=== PATIENT | male | born 1980 | race African-American/Black ===

== ENCOUNTER → 2018-10-22 | Outpatient (CLI) | payer OTHER ==
--- NOTE | 2018-10-23 01:43 | REP ---
Clinical: Lower back pain. Technique: AP, lateral, bilateral oblique and coned-down views of the lumbosacral spine. Findings: Alignment and lordosis maintained. No acute fracture / compression injury or subluxation. Very minimal disc space narrowing at L5-S1 cannot be excluded. No further significant arthritic/degenerative changes appreciated. Impression: Minimal disc space narrowing and L5-S1. Electronically Signed by Rocky Segura MD 10/23/2018 01:35 A
--- NOTE | 2018-10-23 02:03 | REP ---
Clinical: Right hip pain. Technique: Neutral and frog lateral views of the right hip. Findings: Mild joint space narrowing is appreciated. No further overt arthritic changes noted. No acute fracture dislocation. Impression: Mild joint space narrowing. Electronically Signed by Rocky Segura MD 10/23/2018 01:55 A
== END ==
LOC: M RAD 09:14
PROVIDERS: ATTEND Surgery
DX: M16.11 Unilateral primary osteoarthritis, right hip (principal); M51.37 Other intervertebral disc degeneration, lumbosacral region